=== PATIENT | male | born 1955 | race Caucasian/White ===

== ENCOUNTER 2018-06-10 05:14 | Emergency (ER) | payer OTHER, SELFPAY ==
[2018-06-10] VITALS (7 sets, daily range): BP systolic 166–174; BP diastolic 90–102; PULSE 66–75; RESP 13–24; TEMP 36.6; O2SAT 95–98; BMI 31.1
--- NOTE | 2018-06-10 05:28 | ED.DCSUM_ITS ---
- ER Visit Summary Date of Service: 06/10/18 Chief Complaint: [] Asthma COPD flareup History of Present Illness: The patient is a 63 M reports the above for the last 3 weeks. They did some work in his hotel and he thinks it flared up his asthma. He has albuterol but has been out for the last couple days. He has been using it sparingly. No recent prednisone. [place] of town. This came on gradually. His symptoms are continuous this evening. He feels like he is wheezing. Moderate severity currently. Worsened by trying to take a deep breath. He is having a cough but it is dry. He does not feel like he has a pneumonia or infection. He is not bringing anything up. He has had this multiple times in the past. No recent hospitalization ROS General: Denies fever, chills, sweats Eyes: Denies visual changes, blurred vision, double vision ENT: Denies ear pain, rhinorrhea, sore throat Cardiovascular: Denies chest pain, palpitations, heart racing Respiratory: See HPI GI: Denies abdominal pain, nausea, vomiting, diarrhea, constipation, melena : Denies dysuria, hematuria, frequency Musculoskeletal: Denies myalgias, arthralgias, neck pain, back pain Skin: Denies rash, abscess, abrasions Neuro: Denies headache, weakness, paresthesia Psych: Denies depression, anxiety Endo: Denies polyuria, polydipsia, polyphagia Heme: Denies easy bruising, easy bleeding, lymphadenopathy Allergy: Denies hives, swelling Physical Examination: [] Vital signs reviewed General: Well-nourished well-developed Head: Normocephalic atraumatic Eyes: Pupils equal round and reactive to light extraocular movements intact ENT: TMs clear no hemotympanum no trauma Neck: Nontender full range of motion Cardiovascular: Regular rate rhythm no murmurs normal S1-S2 Respiratory: No distress decreased breath sounds secondary to wheezing bilaterally all lung mcneill no rales or rhonchi. Speaking in full sentences. Ambulating well. Abdomen: Soft nontender nondistended normal bowel sounds no masses Back: Nontender no CVA tenderness Extremities: Nontender active range of motion ?4 extremities no trauma Skin: Normal color no trauma Neuro alert oriented cranial nerves II through XII intact normal strength sensation reflexes Test Results: [] Emergency Department Course and Treatment: [] Given DuoNeb followed by 2 albuterol nebulizer treatments as well as prednisone. At this time I think he is having an asthma flareup. I do not think he has any pneumonia or needs antibiotics. On reevaluation he is feeling much better and will be discharged Treatment Plan: [] Disposition: [] Impression: [] Asthma exacerbation This note was generated with Vine dictation software. It may contain incorrect words, spelling, and punctuation that were not noted in review of the chart prior to signing ED Disposition - Plan for ED Patient: Chief Complaint: Shortness of Breath Referrals: [facility] Doctor,Out of [NON-STAFF] -
[2018-06-10] MEDS: Ipratropium/Albuterol Sulfate 3 ML AMPUL.NEB INHALATION (05:34)
[2018-06-10] MEDS: Albuterol 2.5 MG/3 ML VIAL.NEB. INHALATION ×3 (05:34→05:59)
--- NOTE | 2018-06-10 05:54 | ED.DEP ---
ED Disposition - Plan for ED Patient: Disposition: Home or Assisted Living Chief Complaint: Shortness of Breath Instructions: ED Bronchitis Asthmatic Prescriptions: predniSONE tablet 60 mg PO DAILY #15 tab Referrals: [facility] Doctor,Out of [NON-STAFF] - Lester Granados DO [NON CLINICAL AFFILIATE] -
[2018-06-10] MEDS: predniSONE 20 MG Tablet 60 MG PO (06:07)
== END 2018-06-10 06:23 | disposition home or self-care (01) ==
PROVIDERS: Emergency Provider Emergency Medicine
DX: J45.901 Unspecified asthma with (acute) exacerbation (principal); J44.9 Chronic obstructive pulmonary disease, unspecified; M19.90 Unspecified osteoarthritis, unspecified site; Z72.0 Tobacco use
CPT/HCPCS: 94640; 99284